=== PATIENT | female | born 1960 | race Caucasian/White ===

== ENCOUNTER 2019-04-06 17:11 | Emergency (ER) | payer OTHER ==
[~2019-04-06] VITALS: Ht 162.6 cm; Wt 90.7 kg
[2019-04-06 17:11] VITALS: BP 133/78
--- NOTE | 2019-04-06 17:13 | NUR ---
PT BIBA TO BED 11.
--- NOTE | 2019-04-06 17:22 | NUR ---
Patient states she fainted while she was at home with her family. She stated her son was next to her and helped her down to the ground, she did not sustain any injury to herself when the syncope event occured. The family stated that she did not loose conscious for very long, possibly 30 seconds. The patient stated she had not drank very much water today and has only eaten breakfast this morning. Addendum: 04/06/19 at 1737 by [facility] History: hypertension, diabetes. RX: does not recall htn medication name.
[2019-04-06] MEDS ORDERED: ASPIRIN 81 MG TAB.CHEW PO ONE (17:30)
[2019-04-06] MEDS ORDERED: MECLIZINE 25 MG TAB PO ONE (17:30)
--- NOTE | 2019-04-06 17:30 | NUR ---
DR. ALBERT EVALUATING PT AT BEDSIDE.
--- NOTE | 2019-04-06 17:36 | NUR ---
Chest x-ray at bedside.
--- NOTE | 2019-04-06 17:43 | NUR ---
EMT AT BEDSIDE FOR EKG.
--- NOTE | 2019-04-06 17:45 | NUR ---
PRINCIPAL [employer]ANNER AT BEDSIDE.
[2019-04-06 18:06] LABS: BASOPHILS % (AUTO) 0.2 % (0.0-2.0); EOSINOPHILS # (AUTO) 0.2 K/uL (0-0.4); EOSINOPHILS % (AUTO) 1.9 % (0.0-4.0); HEMATOCRIT 40.9 % (36-48); HEMOGLOBIN 13.4 g/dL (12.0-16.0); LYMPHOCYTES # (AUTO) 1.8 K/uL (2.5-16.5); LYMPHOCYTES % (AUTO) 21.8 % (20.5-51.1); MEAN CORPUSCULAR HEMOGLOBIN 30 pg (27-31); MEAN CORPUSCULAR HGB CONC 33 g/dL (33-37); MEAN CORPUSCULAR VOLUME 91.7 fL (80-94); MONOCYTES # (AUTO) 0.4 K/uL (0.8-1.0); NEUTROPHILS % (AUTO) 71.1 % (42.2-75.2); PLATELET COUNT (AUTO) 277 K/uL (140-450); RED BLOOD CELL COUNT(AUTO) 4.47 MIL/uL (4.20-5.40); RED CELL DISTRIBUTION WIDTH 14.2 % (11.6-13.7); WHITE BLOOD COUNT (AUTO) 8.4 K/uL (4.8-10.8)
[2019-04-06 18:17] LABS: ANION GAP 10.5 (8-16); CARBON DIOXIDE 29.9 mmol/L (21-32); CREATININE 0.8 mg/dL (0.6-1.3); POTASSIUM 3.4 mmol/L (3.5-5.1)
[2019-04-06 18:23] LABS: ALBUMIN 3.4 g/dL (3.4-5.0); TOTAL BILIRUBIN 0.2 mg/dL (0.0-1.0)
--- NOTE | 2019-04-06 18:35 | NUR ---
PT TO CT SCAN VIA WHEELCHAIR.
--- NOTE | 2019-04-06 19:03 | NUR ---
Hand off report given to LINDY Oleary. Transfer of care at this time.
[2019-04-06 19:04] VITALS: BP 115/73
--- NOTE | 2019-04-06 19:10 | NUR ---
Assumed care of Pt at this time. Pt appears to be in no distress. Pt had syncopal episode at home. Pt states she woke up from bed and tried to ambulate to restroom. Pt began to feel weak an called for son to help. Son assisted Pt to ground with no truama. Pt denies hitting head. Pt denies having this happen in past. Pt denies being sick or anyone in house. Pt states drinking a lot of water today. VSS. Waiting for head Ct. Will continue to monitor.
--- NOTE | 2019-04-06 19:34 | NUR ---
Patient discharged with v/s stable. Written and verbal after care instructions given and explained. Patient verbalized understanding. Ambulatory with steady gait. All questions addressed prior to discharge. Advised to follow up with PMD.
== END 2019-04-06 19:34 | disposition home or self-care (01) ==
LOC: MED 17:11
DX: R55 Syncope and collapse (principal); I10 Essential (primary) hypertension; E11.9 Type 2 diabetes mellitus without complications
CPT/HCPCS: 36415; 70450; 71045; 80053; 84484; 85025; 99284; J8597; Q0092; 93005